=== PATIENT | female | born 1940 | race Hispanic/Latino ===

== ENCOUNTER 2017-04-18 06:17 | Day surgery (SDC) | payer OTHER ==
[~2017-04-18] VITALS: Ht 154.9 cm; Wt 52.9 kg
[2017-04-18 07:19] VITALS: BP 133/73
[2017-04-18] MEDS ORDERED: LOSA25TA21 PO (07:57)
[2017-04-18] MEDS ORDERED: SITA100T12 PO (07:57)
[2017-04-18] MEDS ORDERED: ATOR40TA71 PO (07:57)
[2017-04-18] MEDS ORDERED: GLIP5TAB11 PO (07:57)
[2017-04-18] MEDS ORDERED: OMEP40CA37 PO (07:57)
[2017-04-18] MEDS ORDERED: METF10004 PO (07:57)
[2017-04-18] MEDS ORDERED: FENO145T37 PO (07:57)
[2017-04-18] MEDS ORDERED: LOPE2CAP PO (07:57)
[2017-04-18] MEDS ORDERED: FOLI1TAB85 PO (07:57)
[2017-04-18] MEDS ORDERED: ASPI-555 PO (07:57)
[2017-04-18] MEDS ORDERED: SODIUM CHLORIDE 0.9% 1000ML 1,000 ML IV ONE (07:58)
[2017-04-18] MEDS ORDERED: PROPOFOL 10 MG/ML 20ML VIAL IV ONE (08:08)
[2017-04-18 08:38] VITALS: BP 101/50
== END 2017-04-18 09:13 ==
LOC: DAH 06:17 → ENDO 06:17
PROVIDERS: ATTEND Internal Medicine Gastroenterology
DX: Z09 Encounter for follow-up examination after completed treatment for conditions other than malignant neoplasm (principal); Z86.010 Personal history of colon polyps; D12.3 Benign neoplasm of transverse colon; K63.5 Polyp of colon; K57.30 Diverticulosis of large intestine without perforation or abscess without bleeding; E78.5 Hyperlipidemia, unspecified; E11.9 Type 2 diabetes mellitus without complications; Z83.3 Family history of diabetes mellitus; Z80.9 Family history of malignant neoplasm, unspecified; Z79.899 Other long term (current) drug therapy; I10 Essential (primary) hypertension; Z79.84 Long term (current) use of oral hypoglycemic drugs
CPT/HCPCS: 45385; 82948 ×2; 88305; 93005; A4606; J2704; J7030